=== PATIENT | male | born 1965 | race Caucasian/White ===

== ENCOUNTER 2016-11-21 14:22 | Emergency (ER) | payer SELFPAY ==
[~2016-11-21] VITALS: Ht 177.8 cm; Wt 87.0 kg
[~2016-11-21 14:22] MED LIST: AMOX875 PO; IBUP800T23 PO; METF500 PO; MMW SSP; XANA0.5T PO
[2016-11-21 14:24] VITALS: BP 133/65; PULSE 98; RESP 18; TEMP 98.6
--- NOTE | 2016-11-21 14:33 | PD ---
Physical Exam Date Seen by Provider: Nov 21, 2016 Time Seen by Provider: 14:27 Narrative 51 y/o Male here with left Foot Pain due to previous injury 8 months ago where a window fell on his feet while working at [employer]. This was never reported. Now C/O pain and Swelling due to loss of Nail of the second left toe 3 days ago. Now has increasing pain swelling and redness extending up into the foot. No Fever or chills. No Hx. Diabetes. Vital signs reviewed. Patient stable. Awaiting Bed placement. Data Data Last Documented VS Vital Signs Date Time Temp Pulse Resp B/P Pulse Ox O2 Delivery O2 Flow Rate FiO2 11/21/16 14:24 98.6 98 18 133/65 MDM Medical Record Reviewed: Yes Supervised Visit with NARCISA: Yes Condition: Stable Tomas Churchill Nov 21, 2016 14:33
--- NOTE | 2016-11-21 17:10 | PD ---
HPI Chief Complaint: Skin Problem Time Seen by Provider: 17:09 Travel History International Travel<30 days: No Contact w/Intl Traveler<30days: No Traveled to known affect area: No History of Present Illness HPI 51-year-old male presents to the emergency Department with complaint of a possible infection to his left second toe times one week. A year ago he dropped a window on his foot causing his toenail to blacken and it fell off a week ago. When he pulled out the toe and also tore some skin to the distal aspect of the toe. Since then his toe has become red, swollen and painful. He denies fever, vomiting. Denies paresthesias, loss of sensation to the affected toe. Has been using [id number] ointments and keeping it covered for symptom management. Symptoms are moderate in severity. Reports being up-to- date on his tetanus vaccination. No known allergies. Has no other medical complaints. No other modifying factors or associated signs and symptoms. PFSH Past Medical History Cancer: No Cardiovascular Problems: No Diabetes: Yes Diminished Hearing: No Endocrine: Yes Genitourinary: No Hepatitis: No Hiatal Hernia: No Immune Disorder: No Musculoskeletal: No Neurologic: No Psychiatric: No Reproductive: No Respiratory: No Thyroid Disease: No ?: Not Past Surgical History AICD: No Joint Replacement: No Oral Surgery: Yes ("DENTAL WORK") Pacemaker: No Other Surgery: Yes Social History Alcohol Use: No Tobacco Use: Yes (1 PPD) Substance Use: No Allergies-Medications (Allergen,Severity, Reaction): Coded Allergies: No Known Allergies (Unverified , 11/21/16) Reported Meds & Prescriptions Reported Meds & Active Scripts Active No Active Prescriptions or Reported Medications Review of Systems Except as stated in HPI: all other systems reviewed are Neg Physical Exam Narrative GENERAL: Well-nourished, well-developed male patient, in no acute distress SKIN: Warm and dry. Left foot second toe is erythematous and edematous; open area to the distal aspect without drainage; toenail is nonexistent; sensory intact; decreased range of motion; erythema extends to the metatarsal region. Left lower extremity supple and nontender 2+ pedal pulses and sensory intact. No lymphangitis noted. HEAD: Atraumatic. Normocephalic. EYES: Pupils equal and round. No scleral icterus. No injection or drainage. ENT: Mucosa pink and moist. Airway patent. NECK: Trachea midline. CARDIOVASCULAR: Regular rate. 3+ radial pulses. RESPIRATORY: No accessory muscle use. GASTROINTESTINAL: Obese. MUSCULOSKELETAL: No obvious deformities. No clubbing. No cyanosis. No edema. NEUROLOGICAL: Awake and alert. Oriented 3. No obvious cranial nerve deficits. Motor grossly within normal limits. Normal speech. PSYCHIATRIC: Appropriate mood and affect; insight and judgment normal. Data Data Last Documented VS Vital Signs Date Time Temp Pulse Resp B/P Pulse Ox O2 Delivery O2 Flow Rate FiO2 11/21/16 14:24 98.6 98 18 133/65 Orders Foot, Complete (Hic3ili) (11/21/16 16:55) Wound Care (11/21/16 18:27) MDM Medical Decision Making Medical Screen Exam Complete: Yes Emergency Medical Condition: Yes Medical Record Reviewed: Yes Differential Diagnosis Cellulitis, wound infection, osteomyelitis Narrative Course 51-year-old male with left second toe open wound and cellulitis. She is afebrile and nontoxic-appearing. Denies fever, vomiting. Up-to-date on tetanus oxygen. Reports being prediabetic. The erythema of the toe extends to the metatarsal region. Left foot x-ray to rule out osteomyelitis. 1827: Left foot x-ray concludes. Last 24 hours Impressions Foot X-Ray 11/21/16 1655 Signed Impressions: Service Date/Time: Monday, November 21, 2016 17:14 - CONCLUSION: No erosive or destructive bone changes. Louis Overton MD Keflex, Bactrim, ibuprofen prescribed for home. Wound care provided in the ER. Instructed patient to follow up with podiatry. Instructed patient to follow up with primary care provider. Patient verbalizes understanding and agreement with treatment plan. Patient is medically cleared and stable for discharge. Discussed reasons to return to the emergency department. Patient agrees with treatment plan. The patients vital signs are stable and the patient is stable for outpatient follow-up and treatment. Patient discharged home, stable and in no acute distress. Diagnosis Primary Impression: Wound infection Additional Impression: Cellulitis of second toe of left foot Referrals: Pipeline Engineer Primary Care Physician Patient Instructions: Acute Wound Care (ED), Cellulitis (ED), General Instructions, Wound Infection (ED) Departure Forms: Tests/Procedures, Work Release Enter return to work date: Nov 24, 2016 Additional Instructions: Complete full course of antibiotics Warm compresses to the affected area Keep area clean and dry Warm salt water soaks as needed for wound care See discharge instructions for acute wound care Ibuprofen or Tylenol as directed and as needed for pain and inflammation Follow-up with primary care provider Return to emergency department immediately with worsening of symptoms Med/Other Pt SpecificInfo: Prescription(s) given Scripts Sulfamethoxazole-Trimethoprim (Bactrim DS)800-160 Mg Tab1 Tab PO BID 10 Days Ref 0 Prov:Chaparrita Alejandro 11/21/16 Ibuprofen 800 Mg [id number] Mg PO Q6HR PRN (PAIN) #30 TAB Ref 0 Prov:Chaparrita Alejandro 11/21/16 Cephalexin (Keflex)500 Mg Dxv500 Mg PO Q6H 10 Days Ref 0 Prov:Chaparrita Alejandro 11/21/16 Disposition: 01 DISCHARGE HOME Condition: Stable Chaparrita Alejandro Nov 21, 2016 17:10
--- NOTE | 2016-11-21 18:15 | RADRPT ---
EXAM DATE/TIME: 11/21/2016 17:14 [facility] COMPARISON: No previous studies available for comparison. INDICATIONS : Left foot, 2nd digit sore on bottem of digit. MEDICAL HISTORY : None. SURGICAL HISTORY : None. ENCOUNTER: Initial ACUITY: 3 days PAIN SCORE: 6/10 LOCATION: Left foot, bottem of 2nd digit. FINDINGS: Three view examination of the left foot demonstrates no soft tissue swelling, dislocation, or fractur e. The tarsal bones appear intact. The interphalangeal and metatarsophalangeal joints are intact. The calcaneus is intact. Bony mineralization is normal. CONCLUSION: No erosive or destructive bone changes. Louis Overton MD on November 21, 2016 at 18:12 Board Certified Radiologist. This report was verified electronically.
[2016-11-21] MEDS ORDERED: BACT800T5 PO (18:33)
[2016-11-21] MEDS ORDERED: CEPH-460 PO (18:33)
[2016-11-21] MEDS ORDERED: IBUP800T23 PO (18:33)
== END 2016-11-21 18:51 | disposition home or self-care (01) ==
LOC: NEPK 14:22
DX: L03.032 Cellulitis of left toe (principal); E11.9 Type 2 diabetes mellitus without complications; F17.200 Nicotine dependence, unspecified, uncomplicated
CPT/HCPCS: 73630; 99284